=== PATIENT | female | born 1980 | race Caucasian/White ===

== ENCOUNTER 2017-07-25 11:50 | Emergency (ER) | payer OTHER ==
[2017-07-25] MEDS ORDERED: ALPRAZolam 0.25 MG TABLET ONE (12:40)
--- NOTE | 2017-07-25 12:51 | EKG ---
[address] [address] Test Date: 2017-07-25 Test Time: 12:42:48 Pat Name: EDITH ACEVES Department: Room: Gender: F Fur Blender: : 1980 Requested By: DARIA KENYON Order Number: [id number] Reading MD: Measurements Intervals [place] Rate: 92 P: 36 [place]: 146 QRS: 56 QRSD: 102 T: 28 QT: 338 QTc: 423 Interpretive Statements SINUS RHYTHM LEFT ATRIAL ABNORMALITY INCOMPLETE RIGHT BUNDLE BRANCH BLOCK QRS(T) CONTOUR ABNORMALITY CONSIDER ANTEROSEPTAL MYOCARDIAL DAMAGE ABNORMAL ECG RI6.01 No previous ECG available for comparison
[2017-07-25] MEDS ORDERED: ALPRAZolam 0.25 MG TABLET PO ONE (13:00)
[2017-07-25 13:27] LABS: AMPHETAMINE/METHAMPHETAMINE NEG (NEG); BARBITURATES NEG (NEG); BENZODIAZEPINES NEG (NEG); CANNABINOIDS NEG (NEG); COCAINE NEG (NEG); METHADONE NEG (NEG); OPIATES NEG (NEG); PHENCYCLIDINE NEG (NEG)
[2017-07-25 13:31] LABS: BILIRUBIN,URINE NEG (NEG); CLARITY,URINE CLEAR; COLOR,URINE STRAW; GLUCOSE,URINE NEG (NEG); NITRITE,URINE NEG (NEG); RBC,URINE 0 /HPF (0-2); UROBILINOGEN,URINE 0.2 mg/dL (0.2 mg/dL)
[2017-07-25 13:32] LABS: BACTERIA,URINE 0 /HPF (0-FEW); SQUAMOUS EPITHELIAL CELL,UR FEW /LPF; WBC,URINE 0 /HPF (0-4)
--- NOTE | 2017-07-25 15:07 | PHYS DOC ---
General Chief Complaint: ANXIETY/PANIC ATTACK Stated Complaint: ANXIETY Time Seen by MD: 11:56 Source: patient Exam Limitations: no limitations Problems: History of Present Illness Initial Comments Patient is a 37-year-old female who comes to the ED complaining of panic attack. Due to severity of the patient trauma room I was unable to see her initially on arrival, ED staff reports that the patient is becoming hysterical so 1 mg of Xanax by mouth ordered prior to my seeing her. On my discussion with her she relays that her spouse is in the doctor referral program to become a lieutenant [employer], they have moved 8 times in the 10 years she has 4 children she is overwhelmed and has history of panic attacks. She's been off medications for the past 4 years due to breast-feeding. She is to take Valium and Wellbutrin and followed with psychiatry. They recently moved here from [place] and she is very tangential and pressured speech, when she sits UP or moves around her heart rate increases from 90s to 120s to 130s as her apparent mood shifts to near hysteria. She does deny suicidal or homicidal ideation and she did ask her spouse to drop her off here because she "needed a minute." She does complain of shortness of breath and chest pain however states these symptoms are consistent with her prior anxiety symptoms she has no coronary artery disease risk factors as her only past medical history is panic attacks and anxiety. She further relays that she feels ignored by the and that distress discussed her to much today. They have 5 more years until they've been in for 20 years and she knows they're nearing the end Timing/Duration: 1/2 hour Severity: severe Modifying Factors: improves with other Associated Symptoms: chest pain, shortness of breath Allergies: Coded Allergies: No Known Drug Allergies (Unverified , 07/25/17) Past Medical History Medical History: other (anxiety of depression and panic attacks) Surgical History: noncontributory Social History Smoker: non-smoker Alcohol: none Drugs: none Review of Systems Constitutional: denies chills, denies diaphoresis, denies fever, denies malaise Respiratory: denies cough, shortness of breath, denies wheezing Cardiovascular: chest pain, palpitations, denies syncope Gastrointestinal: denies diarrhea, denies nausea, denies vomiting Musculoskeletal: denies back pain, denies joint swelling, denies neck pain Psychiatric/Neurological: see HPI Physical Exam General Appearance: WD/WN, severe distress Eyes: bilateral eye normal inspection, bilateral eye PERRL, bilateral eye EOMI Ear, Nose, Throat: hearing grossly normal, normal ENT inspection Neck: non-tender, supple Respiratory: normal breath sounds, no respiratory distress Cardiovascular: normal peripheral pulses, tachycardia Back: no CVA tenderness, no vertebral tenderness 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 Interpreted by me. Patient's heart rate and symptoms were improved somewhat with Xanax by mouth. I counseled with the patient on multiple occasions for extended period of time discussing stress management techniques, [id number] prescription medications, over commitment and learning to say no, and psychiatric consultation. Patient states that she has scheduled an appointment with a psychiatrist however when she shows me who she is going to see I advised her that it is a psychologist. She is now requesting a psychiatrist referral. After extended period of observation the patient has calmed down and is agreeable to discharge home and follow-up with psych as per departure instructions. Departure Time of Disposition: 15:01 Disposition: 01 HOME, SELF-CARE Diagnosis: Panic Attack Condition: STABLE Patient Instructions: Anxiety and Panic Attacks, [id number] Additional Instructions: Continue your current therapeutic interventions (hobbies, family, exercise) while establishing with psychiatry. Request your PCM check your thyroid hormone level. Rx: alprazolam 0.25mg #10 for severe panic Per your request, Psychiatry referral: Dr Bhargav Richardson MD [facility] [id number] , [facility] [address] [place] [address] call today to schedule appointment. Return to ED with new or changing symptoms. DARIA KENYON DO Jul 25, 2017 15:07
[2017-07-25] MEDS ORDERED: ALPR0.254 PO (15:08)
[2017-07-25 15:15] VITALS: BP 120/79
== END 2017-07-25 15:15 | disposition home or self-care (01) ==
LOC: ER 11:50
DX: F41.0 Panic disorder [episodic paroxysmal anxiety] (principal); F41.8 Other specified anxiety disorders
CPT/HCPCS: 36415; 80307; 81001; 81025; 93005; 99285-25; G0479